=== PATIENT | male | born 1965 | race American Indian/Alaskan Native ===

== ENCOUNTER 2019-06-13 21:03 | Emergency (ER) | payer OTHER, SELFPAY ==
[2019-06-13 21:05] VITALS: PULSE 60; RESP 18; TEMP 37.1; O2SAT 99; BMI 33.2
[2019-06-13 21:30] VITALS: BP 135/81
--- NOTE | 2019-06-13 21:35 | ED.ARRPALP ---
HPI - Arrhythmia/Palpitations General Chief Complaint: Arrhythmia/Palpitations Stated Complaint: IRREGULAR HEART RATE Time Seen by Provider: 06/13/19 21:23 Source: patient Mode of arrival: ambulatory Limitations: no limitations History of Present Illness HPI narrative: Patient is a 53-year-old male with history of atrial fibrillation, who presents with heart palpitations. He states this started yesterday and has continued throughout the day today. He denies any excessive caffeine use fact he only drinks 1 cup of day. No alcohol use. 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 He has been drinking at least 2 L of water day. He denies any dizziness or lightheadedness. He states he feels a little short of breath right now but no cough no fever no shortness of breath with exertion. He states he was cardioverted about 6 years ago, and has not had any problems. MD complaint: palpitations Onset (ago): day(s) (2) Arrhythmia history: atrial fibrillation Related Data Allergies Allergy/AdvReac Type Severity Reaction Status Date / Time No Known Drug Allergies Allergy Verified 06/13/19 21:12 Review of Systems Review of Systems GENERAL: Denies chills, fatigue, malaise, fever, sweats, travel HEENT: Denies sinus pain, ear pain, sore throat, difficulty swallowing, neck pain RESPIRATORY: Denies dyspnea, cough, wheezing, hemoptysis, sputum. CARDIOVASCULAR: See HPI GASTROINTESTINAL: Denies nausea, vomiting, abdominal pain, diarrhea, constipation, melena. : Denies dysuria, frequency, incontinence, hematuria, urinary retention, flank pain. MUSCULOSKELETAL: Denies weakness, joint pain, or bony pain SKIN: No rash, no erythema, no pruritus NEUROLOGIC: Denies weakness, dizziness, headache, numbness, change in speech, confusion PSYCHIATRIC: No concerning psychosocial issues. 12 point review of systems is negative except for those stated above and HPI [facility] Medical History Atrial fibrillation (Acute) Social History Smoking Status: Never smoker Social History Smoking Status: Never smoker Exam Initial Vital Signs Initial Vital Signs: Vital Signs Temperature 98.7 F 06/13/19 21:05 Pulse Rate 60 06/13/19 21:05 Respiratory Rate 18 06/13/19 21:05 Pulse Oximetry 99 06/13/19 21:05 GENERAL: Well-appearing, well-nourished and in no acute distress. HEENT: Head atraumatic,EOMI, pupils reactive, face symmetric, moist mucous membranes CARDIOVASCULAR: Regular rate and rhythm without murmurs, rubs or gallops. RESPIRATORY: Breath sounds equal bilaterally, no wheezes rales or rhonchi. ABDOMEN: Soft, nontender. Normoactive bowel sounds all 4 quadrants. No guarding or rebound. EXTREMITIES: Normal range of motion, no clubbing or edema. Neurovascularly intact NEUROLOGICAL: Alert and oriented x4.Normal gait and speech. Cranial nerves II through XII grossly intact. SKIN: Warm, dry, no laceration, no petechiae, no rashes or lesions. Course Orders Ordered: ED Orders 06/13/19 21:12 EKG-12 Lead Stat 06/13/19 21:25 Complete Blood Count AUTO DIFF Stat Comprehensive Metabolic Panel Stat Lipase Stat Troponin & CK Cardiac Panel Stat 06/13/19 21:49 XR chest 1V Stat Discontinued Medications Sodium Chloride (Normal Saline 0.9%) 1,000 mls @ 1,000 mls/hr IV CONT FABIAN Last Admin: 06/13/19 21:53 Dose: 1,000 mls/hr Vital Signs - 8 hr 06/13/19 21:05 06/13/19 21:30 06/13/19 22:32 Temperature 98.7 F Pulse Rate 60 65 Respiratory Rate 18 17 Blood Pressure 123/69 Blood Pressure [Right Arm] 135/81 Pulse Oximetry 99 97 MDM - Arrhythmia/Palpitations Lab Data Attestation: I reviewed the patient's lab results. Result diagrams: 06/13/19 21:25 06/13/19 21:25 Lab Results 06/13/19 06/13/19 Range/Units 21:25 21:25 WBC 6.8 (4.5-11.0) X10^3/uL RBC 4.91 (4.5-5.9) X10^6/uL Hgb 14.6 (13.5-17.5) g/dL Hct 41.8 (41-53) % MCV 85.0 (80-100) fL MCH 29.8 (26-34) PG MCHC 35.0 (30-36) % RDW 12.9 (11.6-14.8) % Plt Count 230 (150-400) X10^3/uL Neut % (Auto) 52.4 (50-75) % Lymph % (Auto) 32.9 (25-40) % [place] % (Auto) 9.6 (3-14) % Eos % (Auto) 4.5 H (2-4) % Baso % (Auto) 0.6 (0-2) % Neut # (Auto) 3500 (3079-2841) /uL Lymph # (Auto) 2200 (0480-0379) /uL [place] # (Auto) 600 (0-900) /uL Eos # (Auto) 300 (0-450) /uL Baso # (Auto) 0 (0-100) /uL Sodium 139 (137-145) mmol/L Potassium 3.4 (3.4-5.1) mmol/L Chloride 106 (98-107) mmol/L Carbon Dioxide 26 (22-32) mmol/L BUN 15 (9-20) mg/dL Creatinine 0.80 (0.66-1.25) mg/dL Estimated GFR > 60.0 (>60) mL/min BUN/Creatinine Ratio 18.8 (6-22) Glucose 127 H (70-100) mg/dL Calcium 8.9 (8.4-10.2) mg/dL Total Bilirubin 0.7 (0.2-1.3) mg/dL AST 40 (17-59) IU/L ALT 24 (21-72) IU/L Alkaline Phosphatase 61 (38-126) U/L Total Creatine Kinase 429 H (55-170) U/L CK-MB (CK-2) 3.82 H (<2.37) ng/mL CK-MB (CK-2) Rel Index 0.9 L (1.5-5.0) % Troponin I < 0.012 (0.01-0.034) ng/mL Total Protein 7.4 (6.3-8.2) g/dL Albumin 4.1 (3.5-5.0) g/dL Globulin 3.3 (1.7-4.1) g/dL Albumin/Globulin Ratio 1.2 (1.0-2.8) Lipase 175 (23-300) U/L Imaging Data Chest x-ray: Attestation: I personally reviewed and interpreted this imaging study as follows: My impression: No acute cardio process ECG Data Attestation: I personally reviewed and interpreted this ECG as follows: Prior ECG tracings: available for review Interpretation: Normal sinus rhythm with PVCs heart rate 61 p.r. interval 210 T-wave inversion noted in lead 3 similar [place] [address] [place]ations. MDM Narrative Medical decision making narrative: Patient does have PVCs on the monitor likely causing his heart palpitation. We discussed increasing hydration avoiding caffeine. At this time no need for treatment recommended to follow up with his PCP. He overall feels better and feels ready and able to go home. Discharge Plan Departure Patient Disposition: Home Clinical Impression: Palpitations Discharge Date/Time: 06/13/19 22:34 Interventions: ED Discharge Assessment Last Done: 06/13/19 22:32 Instructions: Premature Ventricular Beats Activity Restrictions/Additional Instructions: *You have been diagnosed with PVCs *What to do: Your heart is skipping a beat which is a benign problem. At this time recommend decreasing caffeine and increasing water intake *Continue to take medications as directed *Follow up with your primary care provider in 2-3 days *Return to ER if you should have increasing palpitations dizziness lightheadedness chest pain or any new, worsening or concerning symptoms Referrals: Arlet Larios MD [Primary Care Provider] -
--- NOTE | 2019-06-13 21:38 | ED_ITS ---
HPI - Arrhythmia/Palpitations General Chief Complaint: Arrhythmia/Palpitations Stated Complaint: IRREGULAR HEART RATE Time Seen by Provider: 06/13/19 21:23 Source: patient Mode of arrival: ambulatory Limitations: no limitations History of Present Illness HPI narrative: Patient is a 53-year-old male with history of atrial fibrillation, who presents with heart palpitations. He states this started yesterday and has continued throughout the day today. He denies any excessive caffeine use fact he only drinks 1 cup of day. No alcohol use. 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 He has been drinking at least 2 L of water day. He denies any dizziness or lightheadedness. He states he feels a little short of breath right now but no cough no fever no shortness of breath with exertion. He states he was cardioverted about 6 years ago, and has not had any problems. MD complaint: palpitations Onset (ago): day(s) (2) Arrhythmia history: atrial fibrillation Related Data Allergies Allergy/AdvReac Type Severity Reaction Status Date / Time No Known Drug Allergies Allergy Verified 06/13/19 21:12 Review of Systems Review of Systems GENERAL: Denies chills, fatigue, malaise, fever, sweats, travel HEENT: Denies sinus pain, ear pain, sore throat, difficulty swallowing, neck pain RESPIRATORY: Denies dyspnea, cough, wheezing, hemoptysis, sputum. CARDIOVASCULAR: See HPI GASTROINTESTINAL: Denies nausea, vomiting, abdominal pain, diarrhea, constipation, melena. : Denies dysuria, frequency, incontinence, hematuria, urinary retention, flank pain. MUSCULOSKELETAL: Denies weakness, joint pain, or bony pain SKIN: No rash, no erythema, no pruritus NEUROLOGIC: Denies weakness, dizziness, headache, numbness, change in speech, confusion PSYCHIATRIC: No concerning psychosocial issues. 12 point review of systems is negative except for those stated above and HPI [facility] Medical History Atrial fibrillation (Acute) Social History Smoking Status: Never smoker Social History Smoking Status: Never smoker Exam Initial Vital Signs Initial Vital Signs: Vital Signs Temperature 98.7 F 06/13/19 21:05 Pulse Rate 60 06/13/19 21:05 Respiratory Rate 18 06/13/19 21:05 Pulse Oximetry 99 06/13/19 21:05 GENERAL: Well-appearing, well-nourished and in no acute distress. HEENT: Head atraumatic,EOMI, pupils reactive, face symmetric, moist mucous membranes CARDIOVASCULAR: Regular rate and rhythm without murmurs, rubs or gallops. RESPIRATORY: Breath sounds equal bilaterally, no wheezes rales or rhonchi. ABDOMEN: Soft, nontender. Normoactive bowel sounds all 4 quadrants. No g uarding or rebound. EXTREMITIES: Normal range of motion, no clubbing or edema. Neurovascularly inta ct NEUROLOGICAL: Alert and oriented x4.Normal gait and speech. Cranial nerves II through XII grossly intact. SKIN: Warm, dry, no laceration, no petechiae, no rashes or lesions. Course Orders Ordered: ED Orders 06/13/19 21:12 EKG-12 Lead Stat 06/13/19 21:25 Complete Blood Count AUTO DIFF Stat Comprehensive Metabolic Panel Stat Lipase Stat Troponin & CK Cardiac Panel Stat 06/13/19 21:49 XR chest 1V Stat Discontinued Medications Sodium Chloride (Normal Saline 0.9%) 1,000 mls @ 1,000 mls/hr IV CONT FABIAN Last Admin: 06/13/19 21:53 Dose: 1,000 mls/hr Vital Signs - 8 hr 06/13/19 21:05 06/13/19 21:30 06/13/19 22:32 Temperature 98.7 F Pulse Rate 60 65 Respiratory Rate 18 17 Blood Pressure 123/69 Blood Pressure [Right Arm] 135/81 Pulse Oximetry 99 97 MDM - Arrhythmia/Palpitations Lab Data Attestation: I reviewed the patient's lab results. Result diagrams: 06/13/19 21:25 06/13/19 21:25 Lab Results 06/13/19 06/13/19 Range/Units 21:25 21:25 WBC 6.8 (4.5-11.0) X10^3/uL RBC 4.91 (4.5-5.9) X10^6/uL Hgb 14.6 (13.5-17.5) g/dL Hct 41.8 (41-53) % MCV 85.0 (80-100) fL MCH 29.8 (26-34) PG MCHC 35.0 (30-36) % RDW 12.9 (11.6-14.8) % Plt Count 230 (150-400) X10^3/uL Neut % (Auto) 52.4 (50-75) % Lymph % (Auto) 32.9 (25-40) % [place] % (Auto) 9.6 (3-14) % Eos % (Auto) 4.5 H (2-4) % Baso % (Auto) 0.6 (0-2) % Neut # (Auto) 3500 (1591-8018) /uL Lymph # (Auto) 2200 (6304-4190) /uL [place] # (Auto) 600 (0-900) /uL Eos # (Auto) 300 (0-450) /uL Baso # (Auto) 0 (0-100) /uL Sodium 139 (137-145) mmol/L Potassium 3.4 (3.4-5.1) mmol/L Chloride 106 (98-107) mmol/L Carbon Dioxide 26 (22-32) mmol/L BUN 15 (9-20) mg/dL Creatinine 0.80 (0.66-1.25) mg/dL Estimated GFR > 60.0 (>60) mL/min BUN/Creatinine Ratio 18.8 (6-22) Glucose 127 H (70-100) mg/dL Calcium 8.9 (8.4-10.2) mg/dL Total Bilirubin 0.7 (0.2-1.3) mg/dL AST 40 (17-59) IU/L ALT 24 (21-72) IU/L Alkaline Phosphatase 61 (38-126) U/L Total Creatine Kinase 429 H (55-170) U/L CK-MB (CK-2) 3.82 H (<2.37) ng/mL CK-MB (CK-2) Rel Index 0.9 L (1.5-5.0) % Troponin I < 0.012 (0.01-0.034) ng/mL Total Protein 7.4 (6.3-8.2) g/dL Albumin 4.1 (3.5-5.0) g/dL Globulin 3.3 (1.7-4.1) g/dL Albumin/Globulin Ratio 1.2 (1.0-2.8) Lipase 175 (23-300) U/L Imaging Data Chest x-ray: Attestation: I personally reviewed and interpreted this imaging study as follows: My impression: No acute cardio process ECG Data Attestation: I personally reviewed and interpreted this ECG as follows: Prior ECG tracings: available for review Interpretation: Normal sinus rhythm with PVCs heart rate 61 p.r. interval 210 T- wave inversion noted in lead 3 similar [place] [address] [place]ations. MDM Narrative Medical decision making narrative: Patient does have PVCs on the monitor likely causing his heart palpitation. We discussed increasing hydration avoiding caffeine. At this time no need for treatment recommended to follow up with his PCP. He overall feels better and feels ready and able to go home. Discharge Plan Departure Patient Disposition: Home Clinical Impression: Palpitations Discharge Date/Time: 06/13/19 22:34 Interventions: ED Discharge Assessment Last Done: 06/13/19 22:32 Instructions: Premature Ventricular Beats Activity Restrictions/Additional Instructions: *You have been diagnosed with PVCs *What to do: Your heart is skipping a beat which is a benign problem. At this time recommend decreasing caffeine and increasing water intake *Continue to take medications as directed *Follow up with your primary care provider in 2-3 days *Return to ER if you should have increasing palpitations dizziness lighthe adedness chest pain or any new, worsening or concerning symptoms Referrals: Arlet Larios MD [Primary Care Provider] -
--- NOTE | 2019-06-13 21:49 | DI.RAD.S_ITS ---
PROCEDURE: XR CHEST 1V INDICATIONS: chest pain short of breath TECHNIQUE: One view of the chest was acquired. COMPARISON: None. FINDINGS: Surgical changes and devices: None. Lungs and pleura: Lungs are clear. No pleural effusions or pneumothorax. Mediastinum: Mediastinal contours appear normal. Heart size is normal. Bones and chest wall: No suspicious bony lesions. Overlying soft tissues appear unremarkable. IMPRESSION: No acute cardiopulmonary abnormality. Dictated by: Donnie Rivers M.D. on 06/13/2019 at 22:23 Approved by: Donnie Rivers M.D. on 06/13/2019 at 22:25
[2019-06-13] MEDS: SODIUM CHLORIDE 0.9% 1,000 ML 1000 ML IV (21:53)
[2019-06-13 21:56] LABS: Add Manual Diff / Slide Review NO; Basophils Absolute Auto 0 /uL (0-100); Basophils Percent Auto 0.6 % (0-2); Eosinophils Absolute Auto 300 /uL (0-450); Eosinophils Percent Auto 4.5 % (2-4); Hematocrit 41.8 % (41-53); Hemoglobin 14.6 g/dL (13.5-17.5); Lymphocytes Absolute Auto 2200 /uL (1100-4500); Lymphocytes Percent Auto 32.9 % (25-40); Mean Corpuscular Hemoglobin 29.8 PG (26-34); Monocytes Absolute Auto 600 /uL (0-900); Monocytes Percent Auto 9.6 % (3-14); Neutrophils Absolute Auto 3500 /uL (1500-7000); Neutrophils Percent Auto 52.4 % (50-75); Platelet Count 230 X10^3/uL (150-400); Red Blood Cell Count 4.91 X10^6/uL (4.5-5.9); Red Cell Distribution Width 12.9 % (11.6-14.8); White Blood Cell Count 6.8 X10^3/uL (4.5-11.0)
[2019-06-13 22:03] LABS: Alanine Aminotransferase 24 IU/L (21-72); Albumin 4.1 g/dL (3.5-5.0); Albumin Globulin Ratio 1.2 (1.0-2.8); Alkaline Phosphatase 61 U/L (38-126); Aspartate Aminotransferase 40 IU/L (17-59); BUN Creatinine Ratio 18.8 (6-22); Bilirubin Total 0.7 mg/dL (0.2-1.3); Blood Urea Nitrogen 15 mg/dL (9-20); Calcium 8.9 mg/dL (8.4-10.2); Carbon Dioxide 26 mmol/L (22-32); Chloride 106 mmol/L (98-107); Creatine Kinase 429 U/L (55-170); Estimated Glomerular Filt Rate > 60.0 mL/min (>60); Globulin 3.3 g/dL (1.7-4.1); Glucose 127 mg/dL (70-100); HEMOLYSIS 19 (0-50); Lipase 175 U/L (23-300); Potassium 3.4 mmol/L (3.4-5.1); Sodium 139 mmol/L (137-145); Total Protein 7.4 g/dL (6.3-8.2)
[2019-06-13 22:14] LABS: Troponin I < 0.012 ng/mL (0.01-0.034)
[2019-06-13 22:18] LABS: CKMB % Relative Index 0.9 % (1.5-5.0); Creatine Kinase MB 3.82 ng/mL (<2.37)
[2019-06-13 22:32] VITALS: BP 123/69; PULSE 65; RESP 17; O2SAT 97
--- NOTE | 2019-06-26 03:51 | PC.NURSE ---
late entry: Pt received 500ml of normal saline. completed at time of discharge on 06/13/19 at 2234
== END 2019-06-13 22:34 | disposition home or self-care (01) ==
PROVIDERS: Emergency Provider Emergency Medicine; PCP Family Medicine
DX: R00.2 Palpitations (principal)
CPT/HCPCS: 36591; 71045; 80053; 82550; 82553; 83690; 84484; 85025; 93005; 93010; 93041; 96360; 99283; 99284; 99285

== ENCOUNTER 2019-08-04 18:44 | Emergency (ER) | payer OTHER, SELFPAY ==
[2019-08-04 18:51] VITALS: BP 135/94; PULSE 69; RESP 16; TEMP 36.9; O2SAT 98
--- NOTE | 2019-08-04 18:53 | ED_ITS ---
HPI - Wound/Laceration General Chief Complaint: Wound/Laceration Stated Complaint: laceration to right thumb from table saw Time Seen by Provider: 08/04/19 18:50 Source: patient Mode of arrival: Ambulatory Limitations: no limitations History of Present Illness HPI narrative: 53-year-old male here for evaluation of an injury to his right thumb. Patient states that he was using a table saw all at home when he touched the saw with his thumb. Had bleeding immediately afterwards. Does not know when his last tetanus shot was. Wrapped with a bandage came to the emergency department for evaluation for Related Data Previous Rx's Medication Instructions Recorded cephalexin [Keflex] 500 mg PO BID 7 Days #14 cap 08/04/19 Allergies Allergy/AdvReac Type Severity Reaction Status Date / Time No Known Drug Allergies Allergy Verified 06/13/19 21:12 Review of Systems Constitutional Constitutional: Denies headache(s) ENT Ears, Nose, Mouth, and Throat: Denies headache(s) Musculoskeletal Musculoskeletal: Denies myalgias, Denies arthralgias and Denies tingling Integumentary/Breasts Comments: Cut to the tip of the right thumb Neurologic Neurologic: Denies headache(s), Denies tingling and Denies paresthesias Hematologic/Lymphatic Hematologic/Lymphatic: Denies easy bleeding and Denies easy bruising [facility] Medical History Atrial fibrillation (Acute) Social History Smoking Status: Never smoker Exam Initial Vital Signs Initial Vital Signs: Vital Signs Temperature 98.4 F 08/04/19 18:51 Pulse Rate 69 08/04/19 18:51 Respiratory Rate 16 08/04/19 18:51 Blood Pressure 135/94 H 08/04/19 18:51 Pulse Oximetry 98 08/04/19 18:51 Const General: cooperative, comfortable and well developed Orientation: alert, awake and oriented x3 Cardio Pulses: radial pulses present on the right Skin Other: Patient with a 0.5 cm laceration volar aspect of the right thumb and a 2nd 2 cm laceration to the tip of the right thumb also on the volar aspect. There is no nail involvement. Neuro Sensory Exam: no sensory deficits noted Extrem Other: Full range of motion of the MCP and IP joint of the right thumb Psych Appearance: grossly normal and well kempt Procedures Laceration Repair Laceration 1: Site: other (Right thumb) Side (If applicable): right Size (cm): 2 Description: irregular Depth: simple, single layer Local Anesthetic: lidocaine 1% Amount of anesthesia used (mL): 3 Pre-repair: wound explored and irrigated extensively Skin layer closed with: nylon Size (cm): 4-0 Number of sutures: 5 Technique: simple, interrupted Laceration 2: Site: other (Right thumb) Side (If applicable): right Size (cm): 0.5 Description: linear Depth: simple, single layer Local Anesthetic: lidocaine 1% Amount of anesthesia used (mL): 1 Pre-repair: wound explored and irrigated extensively Skin layer closed with: nylon Size (cm): 4-0 Number of sutures: 2 Technique: simple, interrupted Course Orders Ordered: ED Orders 08/04/19 18:52 XR finger RT min 2V Stat Discontinued Medications Cephalexin HCl (Keflex) 500 mg PO NOW ONE Stop: 08/04/19 20:21 Last Admin: 08/04/19 20:53 Dose: 500 mg Documented by: MARSHAL Diphtheria/Tetanus/Acell Pertussis (Adacel) 0.5 ml IM .ONCE ONE Stop: 08/04/19 18:53 Last Admin: 08/04/19 19:20 Dose: 0.5 ml Documented by: MARSHAL Lidocaine HCl (Xylocaine 1% (Pf)) 4 ml INJ NOW ONE Stop: 08/04/19 18:53 Last Admin: 08/04/19 19:19 Dose: 4 ml Documented by: MARSHAL Lorazepam (Ativan) 2 mg IM NOW ONE Stop: 08/04/19 20:00 Vital Signs Vital signs: Vital Signs - 8 hr 08/04/19 18:51 Temperature 98.4 F Pulse Rate 69 Respiratory Rate 16 Blood Pressure 135/94 H Pulse Oximetry 98 MDM - Wound/Laceration Imaging Data X-ray finger: Radiologist's impression: [address] [id number] XRay Report Signed Patient: Jacques Cervantes CMR#: [id number] : 1965Acct:[id number] Age/Sex: 53 / MDate of Service: 08/04/19 Loc: ED Accession Number: [id number] Procedure: XR finger RT min 2V Ordering Provider: Isidoro López D.O. PROCEDURE: XR FINGER RT MIN 2V INDICATIONS: saw vs thumb TECHNIQUE: AP hand, 2 views of the 3 finger(s) acquired. COMPARISON: None. FINDINGS: Bones: No fractures or dislocations. No suspicious bony lesions. 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 Soft tissues: No suspicious soft tissue calcifications. There is a tissue irregularity in the tip of the first finger. IMPRESSION: No acute bony injuries. Dictated by: Luzma Kaye M.D. on 08/04/2019 at 19:23 Approved by: Luzma Kaye M.D. on 08/04/2019 at 19:24 [facility] Narrative Medical decision making narrative: Patient has relatively superficial injuries to the right thumb. There is no bony involvement. His tetanus was updated. The wounds were closed as described above. No deep structure involvement. Full range of motion of joints. Patient was given return precautions and follow-up instructions. He expressed understanding and agreement with plan. Discharge Plan Departure Patient Disposition: Home Clinical Impression: Laceration Discharge Date/Time: 08/04/19 21:00 Instructions: DI for Laceration Repair Activity Restrictions/Additional Instructions: You can wash your hand like normal. You can use soap and water like normal. Your tetanus shot was updated today. You were given your 1st dose of antibiotics here in the ER fill your prescription and start taking them as directed. Return to the emergency department for any new or worsening symptoms Prescriptions: New cephalexin [Keflex] 500 mg capsule 500 mg PO BID 7 Days Qty: 14 RF: 0 Referrals: Arlet Larios MD [Primary Care Provider] -
[2019-08-04] MEDS: LIDOCAINE 1% (PF) 4 ML INJ (19:19)
[2019-08-04] MEDS: TET,DIPH,PERTUSS(ACELL),VAC/PF 0.5 ML SYRINGE IM (19:20)
[2019-08-04] MEDS: cephALEXin 250 MG CAPSULE 500 MG PO (20:53)
== END 2019-08-04 21:00 | disposition home or self-care (01) ==
PROVIDERS: Emergency Provider Emergency Medicine; PCP Family Medicine
DX: S61.011A Laceration without foreign body of right thumb without damage to nail, initial encounter (principal); W31.2XXA Contact with powered woodworking and forming machines, initial encounter
CPT/HCPCS: 12001; 73140; 90471; 99283; 90715

== ENCOUNTER → 2020-05-19 17:36 | Outpatient (CLI) | payer OTHER, SELFPAY ==
--- NOTE | 2020-05-19 | DI.MRI.S_ITS ---
PROCEDURE: MR ANKLE LT WO CON INDICATIONS: Left achilles pain and swelling TECHNIQUE: Noncontrast sagittal T1 spin echo and T2 fast spin echo with fat saturation, axial proton density fast spin echo and T2 fast spin echo with fat saturation, coronal T1 spin echo and T2 fast spin echo with fat saturation through the ankle/hindfoot. COMPARISON: None. FINDINGS: Image quality: Excellent. Bones and joints: No bone marrow contusions or fractures. No hindfoot coalitions. No osteochondral injuries of the talar dome. No pathologic joint effusions. There is tibiotalar joint degeneration with subchondral marrow edema along the medial and lateral joint. Medial structures: Posterior tibialis intact. Flexor digitorum longus intact. There is mild tenosynovitis. Flexor hallucis longus tendon intact. The posterior tibial neurovascular bundle appears normal within the tarsal tunnel, without extrinsic mass effect. Deltoid ligament complex appears intact. The spring ligament appears intact. Lateral structures: Anterior talofibular ligament not well seen and probably reflects chronic sprain given the absence of adjacent soft tissue edema. Calcaneofibular ligament intact. Posterior talofibular ligament intact. Anterior and posterior tibiofibular ligaments appear intact, as is the intermalleolar ligament. Tibiofibular syndesmosis is normal in width at 2 mm or less. Peroneus longus and brevis tendons demonstrate normal location and morphology. Bony peroneal tubercle and retrotrochlear prominence are normal in size. Sinus tarsi demonstrates normal fatty signal, without edema, fibrosis, or cyst formation. Anterior structures: Tibialis anterior intact. Extensor hallucis longus intact. Extensor digitorum longus tendon intact. Dorsal talonavicular ligament appears intact. Posterior and plantar structures: Achilles tendon is markedly thickened with T2 hyperintensity in keeping with severe tendinopathy/partial rupture. No complete rupture identified. This finding technically age indeterminate and could be subacute or chronic. Mild medial band plantar fasciitis, technically age indeterminate. No abductor digiti quinti muscle atrophy to suggest Hernandez neuropathy. IMPRESSION: Severe Achilles tendinopathy and/or partial rupture. No complete disruption identified. Tibiotalar joint degeneration Chronic sprain of the anterior talofibular ligament Mild flexor digitorum tenosynovitis Dictated by: Son Dunn M.D. on 05/20/2020 at 9:33 Approved by: Son Dunn M.D. on 05/20/2020 at 9:48
--- NOTE | 2020-05-19 | DI.RAD.S_ITS ---
PROCEDURE: XR FOOT LT MIN 3V INDICATIONS: Other specified disorders of synovium and tendon, TECHNIQUE: Three views of the foot were acquired. COMPARISON: None. FINDINGS: Bones: No fractures or dislocations. Mild degenerative spurring at the 1st TMT joint. Moderate spurring anterior and posteriorly at the tibiotalar joint and dorsally along the midfoot. No suspicious bony lesions. Soft tissues: No tibiotalar joint effusion. Achilles tendon appears normal. IMPRESSION: Mild hindfoot and midfoot degeneration. This is most pronounced at the tibiotalar joint. Dictated by: Linda Joyce M.D. on 05/20/2020 at 9:17 Approved by: Linda Joyce M.D. on 05/20/2020 at 9:18
== END ==
PROVIDERS: PCP Family Medicine; Referring Provider Family Medicine; Visit Provider Family Medicine
DX: M79.672 Pain in left foot (principal); M19.072 Primary osteoarthritis, left ankle and foot; M67.874 Other specified disorders of tendon, left ankle and foot; S93.492A Sprain of other ligament of left ankle, initial encounter; M65.872 Other synovitis and tenosynovitis, left ankle and foot
CPT/HCPCS: 73630; 73721

== ENCOUNTER → 2021-04-05 09:43 | Outpatient (CLI) | payer OTHER, SELFPAY ==
[2021-04-05 11:09] LABS: COVID19 -Nasal RAPID Negative (Negative)
== END ==
PROVIDERS: PCP Family Medicine; Visit Provider Surgery
DX: Z20.822 Contact with and (suspected) exposure to COVID-19 (principal)
CPT/HCPCS: 87635; C9803

== ENCOUNTER 2021-04-06 14:03 | Day surgery (SDC) | payer OTHER, SELFPAY ==
[2021-04-06] VITALS (7 sets, daily range): BP systolic 96–115; BP diastolic 61–77; PULSE 54–65; RESP 12–16; TEMP 35.8–36.9; O2SAT 95–98; BMI 31.7
--- NOTE | 2021-04-06 14:50 | PM.HP.1 ---
History of Present Illness History of Present Illness Date Patient Seen: 04/06/21 Time Patient Seen: 14:50 Chief complaint: SDC Narrative: This is a 55-year-old man who is here for his 1st screening colonoscopy. He does have a history of anemia. He denies any known history of melena, hematochezia, unexplained abdominal pain, unexplained weight loss, or family history of colon cancer or colon polyps. ROS: Thirteen system review is otherwise negative other than as mentioned below and in HPI. PE GENERAL: Well groomed and cooperative. Appears stated age. Answers questions promptly and appropriately. Vital signs noted. HENT: Normocephalic, atraumatic. Hearing intact. EYES: Conjunctiva pink, sclera white, no periorbital swelling. CARDIOVASCULAR: Regular rate. No pedal edema. RESPIRATORY: Non-tachypneic, breathing comfortably on room air. GASTROINTESTINAL: Abdomen soft and non-distended GENITALURINARY: No flank tenderness. MUSCULOSKELETAL: Equal tone and mass bilaterally. SKIN: Warm, dry, soft, appropriate color for ethnicity. No other lesions, rashes, or wounds. NEURO: Alert and Oriented X 3. No gross sensory deficits, or cognitive issues. PSYCH: Appropriate affect and mood. Patient History Medical History (Updated 04/06/21 @ 14:51 by Chichi Wood MD) Atrial fibrillation Family & Social History Tobacco & Substance use: Smoking Status Never smoker alcohol intake frequency other Substance Use Type does not use Meds Home Medications and Allergies Home Medications Medication Instructions Recorded Confirmed Type diltiazem HCl 120 mg PO DAILY 04/06/21 04/06/21 History ferrous sulfate [FeroSul] 325 mg PO Q OTHER DAY 04/06/21 04/06/21 History Allergies Allergy/AdvReac Type Severity Reaction Status Date / Time No Known Drug Allergies Allergy Verified 04/06/21 14:34 Assessment & Plan Assessment and plan (1) At average risk for colon cancer: Status: Acute (2) Anemia: Status: Acute Assessment & Plan narrative: Risks and benefits of screening colonoscopy and possible polypectomy were discussed with the patient including risk of bleeding, perforation, need for additional procedures, risks of anesthesia. The patient desires to proceed with the colonoscopy procedure. COVID-19 COVID-19 status: Negative Result date/Date tested (Pos, Neg/Pending): 04/05/21 Time Spent With Patient Time with patient: 15-24 minutes Quality VTE Deep Vein Thrombosis/Pulmonary Embolism Present on Admission: No
--- NOTE | 2021-04-06 14:55 | P.OP.ENDO_ITS ---
Operative Date/Time/Diagnoses Date of procedure: 04/06/21 Time of procedure: 14:55 Pre-op diagnosis: Anemia, average risk colon cancer Post-op diagnosis: other (No polyps. Mild diverticulosis.) Procedure & Clinicians Study performed: Colonoscopy Procedural sedation performed by the endoscopist Same procedure as scheduled: Yes Indications: Average risk for colon cancer, due for screening colonoscopy, anemia Surgeon: Chichi Wood Procedure Notes SCOAP/Timeout: Performed Procedure in detail: The patient was brought to the room and placed in left lateral decubitus position with all bony prominences padded. A time-out was performed and then the patient was given procedural sedation starting with 4 mg of Versed and 100 mcg of fentanyl. Vitals were monitored throughout the procedure and remained stable. Once adequately sedated, the procedure was begun. A rectal exam was performed revealing no abnormalities. The colonoscope was then introduced to the rectum and advanced to the cecum in the usual fashion. The cecum was identified by the appendiceal orifice, the mucosal tri- fold, and the ileocecal valve. The scope was then retracted while rotating side to side and examining each mucosal fold. Diverticula were seen in the descending and sigmoid colon, without evidence of diverticulitis. At the conclusion of the procedure retroflexion was performed and small grade 1-2 internal hemorrhoids without stigmata of bleeding were seen. The scope was then withdrawn from the rectum the procedure was concluded. The patient tolerated the procedure well and was transferred to the PACU in stable condition. Scope withdrawal time: 10 Findings: diverticulosis Specimen(s): none sent Complications: none Impression: Diverticulosis Post-procedure Recommendations: Colonscopy in 10 years and High fiber diet Follow up: as needed Disposition: PACU
[2021-04-06] MEDS: SODIUM CHLORIDE 0.9% 1,000 ML 200 ML IV (15:00)
[2021-04-06] MEDS: fentaNYL 250 MCG/5 ML INJ IV (15:08)
[2021-04-06] MEDS: MIDAZOLAM 5 MG/5 ML VIAL IV (15:08)
== END 2021-04-06 16:15 | disposition home or self-care (01) ==
PROVIDERS: PCP Physician Assistant; Referring Provider Surgery; Visit Provider Surgery
PROC: 0DJD8ZZ Inspection of Lower Intestinal Tract, Via Natural or Artificial Opening Endoscopic (ICD-10-PCS; CPT 45378; principal; 2021-04-06 15:15)
DX: Z12.11 Encounter for screening for malignant neoplasm of colon (principal); D64.9 Anemia, unspecified; K57.30 Diverticulosis of large intestine without perforation or abscess without bleeding; K64.0 First degree hemorrhoids
CPT/HCPCS: 45378; J2250; J3010

== ENCOUNTER 2022-12-25 18:10 | Emergency (ER) | payer OTHER, SELFPAY ==
--- NOTE | 2022-12-25 18:22 | DI.RAD.S_ITS ---
PROCEDURE: XR CHEST 1V INDICATIONS: chest pain TECHNIQUE: One view of the chest was acquired. COMPARISON: [facility], CR, XR CHEST 1V, 06/13/2019, 21:54. FINDINGS: Surgical changes and devices: None. Lungs and pleura: Lungs are clear. No pleural effusions or pneumothorax. Mediastinum: Mediastinal contours appear normal. Heart size is normal. Bones and chest wall: No suspicious bony lesions. Overlying soft tissues appear unremarkable. IMPRESSION: No acute cardiopulmonary findings Approved by: Wellington Henley M.D. on 12/25/2022 at 18:01
[2022-12-25 18:24] VITALS: BP 148/76; PULSE 59; RESP 16; TEMP 37; O2SAT 99; BMI 35.2
[2022-12-25 18:29] LABS: Add Manual Diff / Slide Review NO; Basophils Absolute Auto 0 /uL (0-100); Basophils Percent Auto 0.6 % (0-2); Eosinophils Absolute Auto 200 /uL (0-450); Eosinophils Percent Auto 3.5 % (2-4); Hematocrit 42.8 % (41-53); Hemoglobin 14.7 g/dL (13.5-17.5); Lymphocytes Absolute Auto 2500 /uL (1100-4500); Mean Corpuscular HGB Conc 34.4 % (30-36); Mean Corpuscular Hemoglobin 29.3 PG (26-34); Mean Corpuscular Volume 85.3 fL (80-100); Monocytes Absolute Auto 600 /uL (0-900); Monocytes Percent Auto 9.7 % (3-14); Neutrophils Absolute Auto 2500 /uL (1500-7000); Neutrophils Percent Auto 43.2 % (50-75); Platelet Count 226 X10^3/uL (150-400); Red Blood Cell Count 5.02 X10^6/uL (4.5-5.9); Red Cell Distribution Width 13.5 % (11.6-14.8); White Blood Cell Count 5.8 X10^3/uL (4.5-11.0)
[2022-12-25 18:35] LABS: Prothrombin Time 11.4 SECONDS (10.1-12.7)
[2022-12-25 18:38] LABS: PTT Partial Thromboplastin Tim 31 SECONDS (26-36)
[2022-12-25 18:40] LABS: Alanine Aminotransferase 36 IU/L (<50); Albumin 4.3 g/dL (3.5-5.0); Albumin Globulin Ratio 1.2 (1.0-2.8); Alkaline Phosphatase 53 U/L (38-126); Aspartate Aminotransferase 32 IU/L (17-59); BUN Creatinine Ratio 17.2 (6-22); Bilirubin Total 0.5 mg/dL (0.2-1.3); Blood Urea Nitrogen 16 mg/dL (9-20); Calcium 8.6 mg/dL (8.4-10.2); Carbon Dioxide 24 mmol/L (22-32); Chloride 105 mmol/L (98-107); Creatine Kinase 221 U/L (55-170); Estimated Glomerular Filt Rate > 60 mL/min (>60); Globulin 3.5 g/dL (1.7-4.1); Glucose 134 mg/dL (70-100); HEMOLYSIS < 15 (0-50); Lipase 198 U/L (23-300); Potassium 3.6 mmol/L (3.4-5.1); Sodium 140 mmol/L (137-145); Total Protein 7.8 g/dL (6.3-8.2)
[2022-12-25 18:51] LABS: Troponin I < 0.012 ng/mL (0.01-0.034)
[2022-12-25 18:55] LABS: CKMB % Relative Index 0.9 % (1.5-5.0); Creatine Kinase MB 1.92 ng/mL (<2.37)
--- NOTE | 2022-12-25 19:55 | ED_ITS ---
HPI - Arrhythmia/Palpitations General Chief Complaint: Arrhythmia/Palpitations Stated Complaint: Irregular heartrate, lightheaded since yesterday Time Seen by Provider: 12/25/22 18:30 Source: patient Mode of arrival: Family Vehicle History of Present Illness HPI narrative: 57-year-old male nonsmoker with history of atrial fibrillation presents with a chief complaint of rapid heart rate and palpitations, yesterday noting that his smart watch suggested rate of 150 when he was exerting himself in a blackberry patch. He was largely asymptomatic otherwise and specifically denies dizziness, weakness or lightheadedness, no chest pain, shortness of breath nor nausea or vomiting. He states his episode lasted an hour at most. He denies any change in his medications or missed doses. He denies any dietary change and has not recently been ill, he denies diarrhea, fever or other. He states he had a very brief episode today of palpitations but no high heart rate. He is had no chest pain at any point, no exertional symptoms and no exercise fatigue. Related Data Home Medications Medication Instructions Recorded Confirmed diltiazem HCl 120 mg 120 mg PO DAILY 04/06/21 04/06/21 capsule,extended release 24 hr ferrous sulfate 325 mg (65 mg 325 mg PO Q OTHER DAY 04/06/21 04/06/21 iron) tablet (FeroSul) Allergies Allergy/AdvReac Type Severity Reaction Status Date / Time No Known Drug Allergies Allergy Verified 04/06/21 14:34 Review of Systems Review of Systems Narrative: GENERAL: Denies chills, fatigue, malaise, fever, sweats. HEENT: Denies sinus pain, ear pain, sore throat, difficulty swallowing, dizziness. RESPIRATORY: Denies dyspnea, cough, wheezing, hemoptysis, sputum. CARDIOVASCULAR: See HPI GASTROINTESTINAL: Denies nausea, vomiting, abdominal pain, diarrhea, constipation, melena. : Denies dysuria, frequency, incontinence, hematuria, urinary retention. MUSCULOSKELETAL: denies weakness, joint pain, or bony pain SKIN: Denies rash, skin lesions, or other NEUROLOGIC: Denies weakness, headache, numbness, change in speech, confusion, seizures, incoordination. PSYCHIATRIC: No concerning psychosocial issues. 12 point review of systems is negative except for those stated above Patient History Medical History (Updated 12/25/22 @ 20:25 by Florian Banks DO) Atrial fibrillation Social History household members: spouse Smoking Status: Never smoker alcohol intake: former Smoking Status: Never smoker alcohol intake frequency: other Substance Use Type: does not use Exam Narrative Exam Narrative: GENERAL: [57] year old patient appears stated age. Well-developed patient, in no obvious distress, resting comfortably HEAD: Atraumatic. Normocephalic. EYES: Pupils equal round and reactive. Extraocular motions intact. No scleral icterus. No injection or drainage. ENT: Nose without bleeding, purulent drainage. Throat without erythema, tonsillar hypertrophy or exudate. Airway patent. NECK: Trachea midline. Non tender CARDIOVASCULAR: Regular rate and rhythm without murmurs, gallops, or rubs. RESPIRATORY: Clear to auscultation. Breath sounds equal bilaterally. No wheezes, rales, or rhonchi. GASTROINTESTINAL: Abdomen soft, non-tender, nondistended. EXTREMITIES: No edema or joint tenderness. BACK: Nontender without deformity or crepitance. No flank tenderness. NEURO: AOx3. SKIN: No rash or erythema of visible areas Initial Vital Signs Initial Vital Signs: Vital Signs Temperature 98.6 F 12/25/22 18:24 Pulse Rate 59 L 12/25/22 18:24 Respiratory Rate 16 12/25/22 18:24 Blood Pressure 148/76 H 12/25/22 18:24 Pulse Oximetry 99 12/25/22 18:24 Oxygen Delivery Method 12/25/22 18:24 Course Orders Ordered: ED Orders 12/25/22 20:22 COVID19 -Nasal RAPID/Pre-Proc Stat Vital Signs Vital signs: Vital Signs - 8 hr 12/25/22 20:33 Pulse Rate 74 Respiratory Rate 14 Blood Pressure 121/85 Pulse Oximetry 97 Oxygen Delivery Method Room Air MDM - Arrhythmia/Palpitations Lab Data 12/25/22 18:21 12/25/22 18:21 Labs: Lab Results 12/25/22 12/25/22 12/25/22 Range/Units 18:21 18:21 18:21 WBC 5.8 (4.5-11.0) X10^3/uL RBC 5.02 (4.5-5.9) X10^6/uL Hgb 14.7 (13.5-17.5) g/dL Hct 42.8 (41-53) % MCV 85.3 (80-100) fL MCH 29.3 (26-34) PG MCHC 34.4 (30-36) % RDW 13.5 (11.6-14.8) % Plt Count 226 (150-400) X10^3/uL Neut % (Auto) 43.2 L (50-75) % Lymph % (Auto) 43.0 H (25-40) % Schuyler % (Auto) 9.7 (3-14) % Eos % (Auto) 3.5 (2-4) % Baso % (Auto) 0.6 (0-2) % Neut # (Auto) 2500 (1528-4543) /uL Lymph # (Auto) 2500 (7610-7001) /uL Schuyler # (Auto) 600 (0-900) /uL Eos # (Auto) 200 (0-450) /uL Baso # (Auto) 0 (0-100) /uL PT 11.4 (10.1-12.7) SECONDS INR 1.0 (0.9-1.3) APTT 31 (26-36) SECONDS Sodium 140 (137-145) mmol/L Potassium 3.6 (3.4-5.1) mmol/L Chloride 105 (98-107) mmol/L Carbon Dioxide 24 (22-32) mmol/L BUN 16 (9-20) mg/dL Creatinine 0.93 (0.66-1.25) mg/dL Estimated GFR > 60 (>60) mL/min BUN/Creatinine Ratio 17.2 (6-22) Glucose 134 H (70-100) mg/dL Calcium 8.6 (8.4-10.2) mg/dL Magnesium 2.0 (1.6-2.3) mg/dL Total Bilirubin 0.5 (0.2-1.3) mg/dL AST 32 (17-59) IU/L ALT 36 (<50) IU/L Alkaline Phosphatase 53 (38-126) U/L Total Creatine Kinase 221 H (55-170) U/L CK-MB (CK-2) 1.92 (<2.37) ng/mL CK-MB (CK-2) Rel Index 0.9 L (1.5-5.0) % Troponin I < 0.012 (0.01-0.034) ng/mL Total Protein 7.8 (6.3-8.2) g/dL Albumin 4.3 (3.5-5.0) g/dL Globulin 3.5 (1.7-4.1) g/dL Albumin/Globulin Ratio 1.2 (1.0-2.8) Lipase 198 (23-300) U/L SARS-CoV-2 (PCR) (Negative) 12/25/22 Range/Units 20:22 WBC (4.5-11.0) X10^3/uL RBC (4.5-5.9) X10^6/uL Hgb (13.5-17.5) g/dL Hct (41-53) % MCV (80-100) fL MCH (26-34) PG MCHC (30-36) % RDW (11.6-14.8) % Plt Count (150-400) X10^3/uL Neut % (Auto) (50-75) % Lymph % (Auto) (25-40) % Schuyler % (Auto) (3-14) % Eos % (Auto) (2-4) % Baso % (Auto) (0-2) % Neut # (Auto) (3407-1019) /uL Lymph # (Auto) (9788-4540) /uL Schuyler # (Auto) (0-900) /uL Eos # (Auto) (0-450) /uL Baso # (Auto) (0-100) /uL PT (10.1-12.7) SECONDS INR (0.9-1.3) APTT (26-36) SECONDS Sodium (137-145) mmol/L Potassium (3.4-5.1) mmol/L Chloride (98-107) mmol/L Carbon Dioxide (22-32) mmol/L BUN (9-20) mg/dL Creatinine (0.66-1.25) mg/dL Estimated GFR (>60) mL/min BUN/Creatinine Ratio (6-22) Glucose (70-100) mg/dL Calcium (8.4-10.2) mg/dL Magnesium (1.6-2.3) mg/dL Total Bilirubin (0.2-1.3) mg/dL AST (17-59) IU/L ALT (<50) IU/L Alkaline Phosphatase (38-126) U/L Total Creatine Kinase (55-170) U/L CK-MB (CK-2) (<2.37) ng/mL CK-MB (CK-2) Rel Index (1.5-5.0) % Troponin I (0.01-0.034) ng/mL Total Protein (6.3-8.2) g/dL Albumin (3.5-5.0) g/dL Globulin (1.7-4.1) g/dL Albumin/Globulin Ratio (1.0-2.8) Lipase (23-300) U/L SARS-CoV-2 (PCR) Negative (Negative) MDM Narrative Medical decision making narrative: CC: 57-year-old male with history of AFib presents with an episode of high heart rate in the 150s and palpitations yesterday, asymptomatic today Complicating co-morbidities: AFib Data collected from: Patient Medical records reviewed: Prior notes reviewed in our EMR Differential considered, but not limited to: AFib, SVT versus other Exam documented above, pertinent findings include: Heart rate regular, no nlabored breathing, soft abdomen, perfusing well and resting comfortably Lab Test results independently reviewed as above. Pertinent findings: No leukocytosis or left shift, H&H stable, electrolytes and kidney function normal, troponin negative Independently reviewed EKG as above Imaging studies independently reviewed: CXR without acute process Discussion: 57-year-old male with history of AFib had an episode racing heart rate and associated palpitations yesterday in the absence of other symptoms. He has been at baseline otherwise though he did have some mild palpitations today this was in the absence of any other symptoms such as chest pain, shortness of breath, high heart rate, dizziness, weakness or lightheadedness. He denies any medical noncompliance or dietary change. He denies any recent exertional symptoms or exercise intolerance. He is otherwise well and free of complaint. Disposition: see below, along with detailed discharge instructions that have been reviewed with patient as well as indications for ED re-evaluation and additional outpatient follow up Discharge Plan Departure Patient Disposition: Home Clinical Impression: Heart palpitations Activity Restrictions/Additional Instructions: *You have been diagnosed with [palpitations resolved, as we discussed your history and physical exam, electrolytes and EKG are very reassuring.] *What to do: *Please continue to take your regular medications as directed. *Please follow up with your primary care provider in 2-3 days, call for an appointment. Let them know you were seen in the Emergency Department and that we ask that you be seen in follow up. We will electronically transmit a record of today's note if your PCP is in our system *Return to Emergency Department if you should have any new, worsening or concerning symptoms, such as [fever greater than 101 F, shaking chills, worsening pain, persistent vomiting or other bothersome symptoms] Prescriptions: No Action diltiazem HCl 120 mg Capsule,Extended Release 24hr 120 mg PO DAILY ferrous sulfate [FeroSul] 325 mg (65 mg iron) Tablet 325 mg PO Q OTHER DAY Referrals: Kym Valencia PA-C [Primary Care Provider] - Stand Alone Forms: Patient Portal/API
--- NOTE | 2022-12-25 20:31 | PC.NURSE ---
iv placed by another nurse
--- NOTE | 2022-12-25 20:32 | PC.NURSE ---
Patient assessed by the doctor.
[2022-12-25 20:33] VITALS: BP 121/85; PULSE 74; RESP 14; O2SAT 97
[2022-12-25 21:26] LABS: COVID19 -Nasal RAPID Negative (Negative)
== END 2022-12-25 20:34 | disposition home or self-care (01) ==
PROVIDERS: Emergency Provider Emergency Medicine; PCP Physician Assistant
DX: R00.2 Palpitations (principal); Z20.822 Contact with and (suspected) exposure to COVID-19
CPT/HCPCS: 71045; 80053; 82550; 82553; 83690; 83735; 84484; 85025; 85610; 85730; 87635; 93005; 99283; 99284; C9803

== ENCOUNTER 2023-02-10 07:56 | Emergency (ER) | payer OTHER, SELFPAY ==
[2023-02-10] VITALS (16 sets, daily range): BP systolic 110–147; BP diastolic 60–88; PULSE 65–84; RESP 11–20; TEMP 36.2–36.6; O2SAT 95–100; BMI 33.6
--- NOTE | 2023-02-10 08:10 | ED.ARRPALP ---
HPI - Arrhythmia/Palpitations General Chief Complaint: Arrhythmia/Palpitations Stated Complaint: afib Time Seen by Provider: 02/10/23 07:59 Source: patient Mode of arrival: Family Vehicle History of Present Illness HPI narrative: Patient is a 57-year-old male. Does have history of atrial fibrillation. Is on diltiazem. 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 Was recently here in the emergency department for palpitations. Has followed up with his hardening machine operator helper since then. Holter monitor has been scheduled but he is yet to start this. He states he went to bed last evening feeling fine. He is taking his diltiazem as directed. Woke up this morning without chest pain nor shortness of breath but is having palpitations. No lightheadedness. He states it feels like his AFib. Has not tried anything for symptoms prior to arrival. Related Data Home Medications Medication Instructions Recorded Confirmed diltiazem HCl 120 mg 120 mg PO DAILY 04/06/21 04/06/21 capsule,extended release 24 hr ferrous sulfate 325 mg (65 mg 325 mg PO Q OTHER DAY 04/06/21 04/06/21 iron) tablet (FeroSul) Previous Rx's Medication Instructions Recorded rivaroxaban 20 mg tablet (Xarelto) 20 mg PO QPM #21 tabs 02/10/23 Allergies Allergy/AdvReac Type Severity Reaction Status Date / Time No Known Drug Allergies Allergy Verified 04/06/21 14:34 Review of Systems Constitutional Constitutional: Reports system reviewed and no additional complaints, except as documented Cardiovascular Cardiovascular: Reports system reviewed and no additional complaints, except as documented Respiratory Respiratory: Reports system reviewed and no additional complaints, except as documented Gastrointestinal Gastrointestinal: Reports system reviewed and no additional complaints, except as documented Integumentary/Breasts Skin/Breast: Reports system reviewed and no additional complaints, except as documented Hematologic/Lymphatic On Anticoagulants: No Patient History Medical History (Updated 02/10/23 @ 09:17 by Isidoro López DO) Atrial fibrillation Social History household members: spouse Smoking Status: Never smoker alcohol intake: former Smoking Status: Never smoker alcohol intake frequency: other Substance Use Type: does not use Exam Initial Vital Signs Initial Vital Signs: Vital Signs Temperature 97.2 F L 02/10/23 08:04 Pulse Rate 84 02/10/23 08:04 Respiratory Rate 20 04/14/23 08:04 Blood Pressure 144/88 H 02/10/23 08:04 Pulse Oximetry 99 02/10/23 08:04 Oxygen Delivery Method Room Air 02/10/23 08:04 Const General: cooperative, comfortable and No ill appearing HENMT Head: normal to inspection and normocephalic Resp Effort & Inspection: normal respiratory effort Auscultation: clear to auscultation bilaterally Cardio Rate: regular rate Rhythm: abnormal rhythm GI Inspection: normal to inspection Skin General: no rashes or lesions noted Neuro General: patient alert, patient awake, patient oriented x3 and moves all extremities Extrem General: normal to inspection and capillary refill normal Procedures Cardioversion Consent Signed: Yes Indication: Atrial fibrillation Stability: Stable Number of attempts (shocks): 1 Joules used: 120 Cardiac rhythm post-cardioversion: Sinus rhythm Procedural Sedation Consent signed: Yes Time out performed: Yes Indication: cardioversion Mallampati Airway Classification: Class II Preparation: playground monitor applied, pulse oximeter, capnometry used, suction/airway equipment at bedside and IV secured Fentanyl: IV Fentanyl dose (mcg): 25 IV Propofol dose (mg): 70 Intraservice time/total sedation time (min): 15 ED Sedation Level: Moderate (Concious) Patient Tolerated Procedure: Well Complications: none Course Orders Ordered: ED Orders 02/10/23 08:00 EKG-12 Lead Stat 02/10/23 08:10 Basic Metabolic Panel Stat Complete Blood Count AUTO DIFF Stat Magnesium Stat 02/10/23 08:48 EKG-12 Lead Stat Sodium Chloride (Normal Saline 0.9%) 1,000 mls @ 125 mls/hr IV CONT FABIAN Last Admin: 02/10/23 08:49 Dose: 125 mls/hr Documented By: DESI Discontinued Medications Fentanyl (Fentanyl 100 Mcg/2 Ml Inj) 25 mcg IV NOW ONE Stop: 02/10/23 08:11 Last Admin: 02/10/23 08:39 Dose: 25 mcg Documented By: DESI Propofol (Propofol 200 Mg/20 Ml Vial) 150 mg IV NOW ONE Stop: 02/10/23 08:11 Last Admin: 02/10/23 08:48 Dose: 70 mg Documented By: DESI Rivaroxaban (Rivaroxaban 10 Mg Tablet) 20 mg PO NOW ONE Stop: 02/10/23 08:50 Last Admin: 02/10/23 09:14 Dose: 20 mg Vital Signs Vital signs: Vital Signs - 8 hr 02/10/23 08:04 02/10/23 08:35 02/10/23 08:41 Temperature 97.2 F L 98 F Pulse Rate 84 78 66 Respiratory Rate 20 12 20 Blood Pressure 144/88 H 141/73 H 147/71 H Pulse Oximetry 99 100 96 Oxygen Delivery Method Room Air Oxygen Flow Rate 3 3 02/10/23 08:50 02/10/23 08:08 02/10/23 08:30 Temperature Pulse Rate 69 80 81 Respiratory Rate 13 13 13 Blood Pressure 116/65 Pulse Oximetry 98 98 99 Oxygen Delivery Method Room Air Oxygen Flow Rate 0 02/10/23 08:45 02/10/23 08:20 Temperature Pulse Rate 68 76 Respiratory Rate 11 L 20 Blood Pressure 118/66 Pulse Oximetry 97 Oxygen Delivery Method Oxygen Flow Rate 3 MDM - Arrhythmia/Palpitations Medical Records Attestation: I reviewed the patient's medical records. Lab Data Attestation: I reviewed the patient's lab results. 02/10/23 08:10 02/10/23 08:10 Labs: Lab Results 02/10/23 02/10/23 Range/Units 08:10 08:10 WBC 5.0 (4.5-11.0) X10^3/uL RBC 5.19 (4.5-5.9) X10^6/uL Hgb 15.3 (13.5-17.5) g/dL Hct 43.8 (41-53) % MCV 84.5 (80-100) fL MCH 29.5 (26-34) PG MCHC 34.9 (30-36) % RDW 13.4 (11.6-14.8) % Plt Count 234 (150-400) X10^3/uL Neut % (Auto) 53.4 (50-75) % Lymph % (Auto) 36.0 (25-40) % Patrick % (Auto) 7.7 (3-14) % Eos % (Auto) 2.4 (2-4) % Baso % (Auto) 0.5 (0-2) % Neut # (Auto) 2700 (7928-2427) /uL Lymph # (Auto) 1800 (0088-1616) /uL Patrick # (Auto) 400 (0-900) /uL Eos # (Auto) 100 (0-450) /uL Baso # (Auto) 0 (0-100) /uL Sodium 136 L (137-145) mmol/L Potassium 3.9 (3.4-5.1) mmol/L Chloride 104 (98-107) mmol/L Carbon Dioxide 23 (22-32) mmol/L BUN 12 (9-20) mg/dL Creatinine 0.74 (0.66-1.25) mg/dL Estimated GFR > 60 (>60) mL/min BUN/Creatinine Ratio 16.2 (6-22) Glucose 229 H (70-100) mg/dL Calcium 8.7 (8.4-10.2) mg/dL Magnesium 1.9 (1.6-2.3) mg/dL ECG Data Attestation: I personally reviewed and interpreted this ECG as follows: Interpretation: Atrial fibrillation Ventricular rate is 79 Normal axis Normal QRS Normal QTC No ST T wave changes Post cardioversion EKG Sinus rhythm Normal axis Normal QRS Normal QTC No ST T wave changes MDM Narrative Medical decision making narrative: Patient has a history of atrial fibrillation. Is on diltiazem. Not on anticoagulation. Symptoms started within the past 24 hours. Discussed the risks and benefits of rhythm control. He is already rate controlled. He is stable. After this discussion he opted to have the cardioversion. Consent was signed. He cardioverted with 1 attempt. Tolerated the procedure very well. We will put him on Xarelto. Will have him contact his hardening machine operator helper for follow-up. He was given return precautions. He expressed understanding and agreement. Discharge Plan Departure Patient Disposition: Home Clinical Impression: Atrial fibrillation status post cardioversion Instructions: DI for Cardioversion, DI for Atrial Fibrillation Activity Restrictions/Additional Instructions: Recommend that you continue to take all of your medications as directed to include the diltiazem. We do need to put you on Xarelto/rivaroxaban for the next couple weeks. Please take it as directed. You can Google ?Xarelto co-pay card ?if needed. This can help offset the cost of this medication. Contact your hardening machine operator helper for follow-up. Return to the emergency department for new symptoms. Prescriptions: New Xarelto 20 mg tablet 20 mg PO QPM Qty: 21 0RF Rx Instructions: must administer with evening meal No Action diltiazem HCl 120 mg Capsule,Extended Release 24hr 120 mg PO DAILY ferrous sulfate [FeroSul] 325 mg (65 mg iron) Tablet 325 mg PO Q OTHER DAY Referrals: Kym Valencia PA-C [Primary Care Provider] - Stand Alone Forms: Patient Portal/API
[2023-02-10 08:21] LABS: Add Manual Diff / Slide Review NO; Basophils Absolute Auto 0 /uL (0-100); Basophils Percent Auto 0.5 % (0-2); Eosinophils Absolute Auto 100 /uL (0-450); Eosinophils Percent Auto 2.4 % (2-4); Hematocrit 43.8 % (41-53); Hemoglobin 15.3 g/dL (13.5-17.5); Lymphocytes Absolute Auto 1800 /uL (1100-4500); Mean Corpuscular HGB Conc 34.9 % (30-36); Mean Corpuscular Hemoglobin 29.5 PG (26-34); Mean Corpuscular Volume 84.5 fL (80-100); Monocytes Absolute Auto 400 /uL (0-900); Monocytes Percent Auto 7.7 % (3-14); Neutrophils Absolute Auto 2700 /uL (1500-7000); Neutrophils Percent Auto 53.4 % (50-75); Platelet Count 234 X10^3/uL (150-400); Red Blood Cell Count 5.19 X10^6/uL (4.5-5.9); Red Cell Distribution Width 13.4 % (11.6-14.8)
[2023-02-10 08:32] LABS: BUN Creatinine Ratio 16.2 (6-22); Blood Urea Nitrogen 12 mg/dL (9-20); Calcium 8.7 mg/dL (8.4-10.2); Carbon Dioxide 23 mmol/L (22-32); Chloride 104 mmol/L (98-107); Estimated Glomerular Filt Rate > 60 mL/min (>60); Glucose 229 mg/dL (70-100); HEMOLYSIS 25 (0-50); Magnesium 1.9 mg/dL (1.6-2.3); Potassium 3.9 mmol/L (3.4-5.1); Sodium 136 mmol/L (137-145)
[2023-02-10] MEDS: fentaNYL 100 MCG/2 ML INJ 25 MCG IV (08:39)
[2023-02-10] MEDS: propofoL 200 MG/20 ML VIAL 150 MG IV (08:48)
[2023-02-10] MEDS: SODIUM CHLORIDE 0.9% 1,000 ML 125 ML IV (08:49)
--- NOTE | 2023-02-10 09:00 | RT ---
At bedside for cardioversion, bag mask unit with suction and etco2 on and functional. No distress noted and pt bea well. Rn and at bedside. Pt on 2 lpm nc, sao2 96%. Released by RN
[2023-02-10] MEDS: RIVAROXABAN 10 MG TABLET 20 MG PO (09:14)
== END 2023-02-10 09:33 | disposition home or self-care (01) ==
PROVIDERS: Emergency Provider Emergency Medicine; PCP Physician Assistant
DX: I48.91 Unspecified atrial fibrillation (principal); Z79.01 Long term (current) use of anticoagulants
CPT/HCPCS: 36415; 80048; 83735; 85025; 92960; 93005; 93010; 96361; 96374; 99152; 99285; J2704; J3010

== ENCOUNTER 2023-02-27 13:58 | Emergency (ER) | payer OTHER, SELFPAY ==
[2023-02-27] VITALS (20 sets, daily range): BP systolic 108–137; BP diastolic 57–88; PULSE 69–99; RESP 12–23; TEMP 36.5; O2SAT 94–100; BMI 31.6
--- NOTE | 2023-02-27 14:10 | ED.ARRPALP ---
HPI - Arrhythmia/Palpitations General Chief Complaint: Arrhythmia/Palpitations Stated Complaint: in AFIB Time Seen by Provider: 02/27/23 14:02 Source: patient and family Mode of arrival: Ambulatory History of Present Illness HPI narrative: Patient is a 57-year-old male. Does have a history of atrial fibrillation. Was seen here in the emergency department by myself approximately 2 weeks ago for a atrial fibrillation. He was cardioverted without issue. Was started on Xarelto. He states that today approximately 2 hours prior to arrival here in the emergency department he stated that he started to feel like his heart was beating fast. No shortness of breath. No lightheadedness. He thought that last night he would a couple beats where he felt like his heart was beating fast but that resolved on its own. He has been taking all of his medications as directed. Related Data Home Medications Medication Instructions Recorded Confirmed diltiazem HCl 120 mg 120 mg PO DAILY 04/06/21 04/06/21 capsule,extended release 24 hr ferrous sulfate 325 mg (65 mg 325 mg PO Q OTHER DAY 04/06/21 04/06/21 iron) tablet (FeroSul) Previous Rx's Medication Instructions Recorded rivaroxaban 20 mg tablet (Xarelto) 20 mg PO QPM #21 tabs 02/10/23 rivaroxaban 20 mg tablet (Xarelto) 20 mg PO QPM #21 tabs 02/11/23 diltiazem HCl 120 mg 120 mg PO BID #60 caps 02/27/23 capsule,extended release 12 hr Allergies Allergy/AdvReac Type Severity Reaction Status Date / Time No Known Drug Allergies Allergy Verified 04/06/21 14:34 Review of Systems Constitutional Constitutional: Reports system reviewed and no additional complaints, except as documented Cardiovascular Cardiovascular: Reports system reviewed and no additional complaints, except as documented Respiratory Respiratory: Reports system reviewed and no additional complaints, except as documented Integumentary/Breasts Skin/Breast: Reports system reviewed and no additional complaints, except as documented Hematologic/Lymphatic On Anticoagulants: Yes Patient History Medical History (Updated 02/27/23 @ 15:14 by Isidoro López DO) Atrial fibrillation Social History household members: spouse Smoking Status: Never smoker alcohol intake: former Smoking Status: Never smoker alcohol intake frequency: other Substance Use Type: does not use Exam Initial Vital Signs Initial Vital Signs: Vital Signs Pulse Rate 88 02/27/23 14:04 Pulse Oximetry 96 02/27/23 14:04 Oxygen Delivery Method Room Air 02/27/23 14:04 Const General: cooperative, comfortable and No ill appearing HENMT Head: normal to inspection and normocephalic Resp Effort & Inspection: normal respiratory effort Auscultation: clear to auscultation bilaterally Cardio Rate: regular rate Rhythm: abnormal rhythm GI Inspection: normal to inspection Skin General: no rashes or lesions noted Neuro General: patient alert, patient awake, patient oriented x3 and moves all extremities Speech: speech normal Extrem General: normal to inspection and capillary refill normal Procedures Cardioversion Consent Signed: Yes Indication: Atrial fibrillation Stability: Stable Number of attempts (shocks): 1 Joules used: 120 Cardiac rhythm post-cardioversion: Sinus rhythm Procedural Sedation Consent signed: Yes Indication: cardioversion ASA Class: II Mallampati Airway Classification: Class II Preparation: candy bar attendant applied, pulse oximeter, capnometry used, supplemental O2 applied, suction/airway equipment at bedside and IV secured Fentanyl: IV Fentanyl dose (mcg): 25 IV Propofol dose (mg): 70 Intraservice time/total sedation time (min): 15 ED Sedation Level: Moderate (Concious) Patient Tolerated Procedure: Well Complications: none Course Orders Ordered: ED Orders 02/27/23 14:08 Basic Metabolic Panel Stat Complete Blood Count AUTO DIFF Stat Magnesium Stat 02/27/23 14:11 EKG-12 Lead Stat 02/27/23 14:37 EKG-12 Lead Stat Sodium Chloride (Normal Saline 0.9%) 1,000 mls @ 125 mls/hr IV CONT FABIAN Last Infusion: 02/27/23 15:11 Dose: 0 mls/hr Documented By: Admin: 02/27/23 14:30 Dose: 1,000 mls/hr Documented By: AVIS Discontinued Medications Fentanyl (Fentanyl 100 Mcg/2 Ml Inj) 25 mcg IV NOW ONE Stop: 02/27/23 14:11 Last Admin: 02/27/23 14:30 Dose: 25 mcg Documented By: AVIS Propofol (Propofol 200 Mg/20 Ml Vial) 100 mg IV NOW ONE Stop: 02/27/23 14:11 Last Admin: 02/27/23 14:33 Dose: 70 mg Documented By: AVIS Vital Signs Vital signs: Vital Signs - 8 hr 02/27/23 14:05 02/27/23 15:00 02/27/23 14:04 Temperature 97.7 F Pulse Rate 99 H 88 Respiratory Rate 14 16 Blood Pressure 137/88 Pulse Oximetry 100 97 96 Oxygen Delivery Method Room Air Room Air Oxygen Flow Rate 0 02/27/23 14:05 02/27/23 14:05 02/27/23 14:28 Temperature Pulse Rate 95 H Respiratory Rate Blood Pressure 137/82 127/67 Pulse Oximetry 95 Oxygen Delivery Method Oxygen Flow Rate 02/27/23 14:28 02/27/23 14:30 02/27/23 14:32 Temperature Pulse Rate 81 85 86 Respiratory Rate 16 16 17 Blood Pressure Pulse Oximetry 96 96 95 Oxygen Delivery Method Nasal Cannula Nasal Cannula Oxygen Flow Rate 2 2 02/27/23 14:32 02/27/23 14:34 02/27/23 14:34 Temperature Pulse Rate 99 H Respiratory Rate 14 Blood Pressure 125/62 112/59 L Pulse Oximetry 96 Oxygen Delivery Method Oxygen Flow Rate 02/27/23 14:35 02/27/23 14:35 02/27/23 14:36 Temperature Pulse Rate 79 77 Respiratory Rate 15 14 Blood Pressure 111/59 L Pulse Oximetry 97 96 Oxygen Delivery Method Nasal Cannula Oxygen Flow Rate 2 02/27/23 14:36 02/27/23 14:41 02/27/23 14:41 Temperature Pulse Rate 75 Respiratory Rate 15 Blood Pressure 124/61 109/57 L Pulse Oximetry 97 Oxygen Delivery Method Nasal Cannula Oxygen Flow Rate 2 02/27/23 14:43 02/27/23 14:43 02/27/23 14:44 Temperature Pulse Rate 74 73 Respiratory Rate 12 13 Blood Pressure 111/58 L Pulse Oximetry 97 96 Oxygen Delivery Method Nasal Cannula Oxygen Flow Rate 2 02/27/23 14:44 02/27/23 14:48 02/27/23 14:48 Temperature Pulse Rate 72 Respiratory Rate 13 Blood Pressure 113/61 108/61 Pulse Oximetry 96 Oxygen Delivery Method Nasal Cannula Oxygen Flow Rate 2 02/27/23 14:52 02/27/23 14:52 02/27/23 14:56 Temperature Pulse Rate 69 71 Respiratory Rate 14 16 Blood Pressure 110/59 L Pulse Oximetry 97 94 Oxygen Delivery Method Room Air Room Air Oxygen Flow Rate 02/27/23 14:56 02/27/23 15:00 02/27/23 15:00 Temperature Pulse Rate 72 Respiratory Rate 17 Blood Pressure 109/60 117/63 Pulse Oximetry 95 Oxygen Delivery Method Oxygen Flow Rate 02/27/23 15:04 02/27/23 15:04 02/27/23 15:10 Temperature Pulse Rate 75 71 Respiratory Rate 20 18 Blood Pressure 122/66 Pulse Oximetry 96 96 Oxygen Delivery Method Room Air Oxygen Flow Rate 02/27/23 15:08 02/27/23 15:08 Temperature Pulse Rate 74 Respiratory Rate 16 Blood Pressure 125/72 Pulse Oximetry 96 Oxygen Delivery Method Room Air Oxygen Flow Rate MDM - Arrhythmia/Palpitations Medical Records Attestation: I reviewed the patient's medical records. Lab Data Attestation: I reviewed the patient's lab results. 02/27/23 14:08 02/27/23 14:08 Labs: Lab Results 02/27/23 02/27/23 Range/Units 14:08 14:08 WBC 5.5 (4.5-11.0) X10^3/uL RBC 5.00 (4.5-5.9) X10^6/uL Hgb 14.8 (13.5-17.5) g/dL Hct 42.0 (41-53) % MCV 84.1 (80-100) fL MCH 29.5 (26-34) PG MCHC 35.1 (30-36) % RDW 13.1 (11.6-14.8) % Plt Count 233 (150-400) X10^3/uL Neut % (Auto) 53.1 (50-75) % Lymph % (Auto) 36.0 (25-40) % [place] % (Auto) 7.4 (3-14) % Eos % (Auto) 2.7 (2-4) % Baso % (Auto) 0.8 (0-2) % Neut # (Auto) 2900 (8644-1352) /uL Lymph # (Auto) 2000 (5331-9640) /uL [place] # (Auto) 400 (0-900) /uL Eos # (Auto) 200 (0-450) /uL Baso # (Auto) 0 (0-100) /uL Sodium 138 (137-145) mmol/L Potassium 3.7 (3.4-5.1) mmol/L Chloride 106 (98-107) mmol/L Carbon Dioxide 24 (22-32) mmol/L BUN 11 (9-20) mg/dL Creatinine 0.78 (0.66-1.25) mg/dL Estimated GFR > 60 (>60) mL/min BUN/Creatinine Ratio 14.1 (6-22) Glucose 151 H (70-100) mg/dL Calcium 8.8 (8.4-10.2) mg/dL Magnesium 2.0 (1.6-2.3) mg/dL ECG Data Attestation: I personally reviewed and interpreted this ECG as follows: Interpretation: Atrial fibrillation Ventricular rate 87 Normal QRS Normal QTC No ST T wave changes Post cardioversion Sinus rhythm Ventricular rate is 78 Normal axis Normal QRS Normal QTC No ST T wave changes Discharge Plan Departure Patient Disposition: Home Clinical Impression: Atrial fibrillation Instructions: DI for Atrial Fibrillation Activity Restrictions/Additional Instructions: I do recommend that you continue to take all of your medications as directed except that cardiology recommends that you increase your diltiazem from 120 mg once a day to 120 mg twice a day. A new prescription for this was sent to [facility]. I recommend you keep all of your scheduled medical appointments. Return to the emergency department for new or worsening symptoms. Prescriptions: New diltiazem HCl 120 mg capsule,extended release 12 hr 120 mg PO BID Qty: 60 0RF No Action diltiazem HCl 120 mg Capsule,Extended Release 24hr 120 mg PO DAILY ferrous sulfate [FeroSul] 325 mg (65 mg iron) Tablet 325 mg PO Q OTHER DAY Xarelto 20 mg tablet 20 mg PO QPM Qty: 21 0RF Rx Instructions: must administer with evening meal Xarelto 20 mg tablet 20 mg PO QPM Qty: 21 0RF Rx Instructions: must administer with evening meal Referrals: Kym Valencia PA-C [Primary Care Provider] - Stand Alone Forms: Patient Portal/API
[2023-02-27 14:21] LABS: Add Manual Diff / Slide Review NO; Basophils Absolute Auto 0 /uL (0-100); Basophils Percent Auto 0.8 % (0-2); Eosinophils Absolute Auto 200 /uL (0-450); Eosinophils Percent Auto 2.7 % (2-4); Hemoglobin 14.8 g/dL (13.5-17.5); Lymphocytes Absolute Auto 2000 /uL (1100-4500); Mean Corpuscular HGB Conc 35.1 % (30-36); Mean Corpuscular Hemoglobin 29.5 PG (26-34); Mean Corpuscular Volume 84.1 fL (80-100); Monocytes Absolute Auto 400 /uL (0-900); Monocytes Percent Auto 7.4 % (3-14); Neutrophils Absolute Auto 2900 /uL (1500-7000); Neutrophils Percent Auto 53.1 % (50-75); Platelet Count 233 X10^3/uL (150-400); Red Cell Distribution Width 13.1 % (11.6-14.8); White Blood Cell Count 5.5 X10^3/uL (4.5-11.0)
[2023-02-27] MEDS: fentaNYL 100 MCG/2 ML INJ 25 MCG IV (14:30)
[2023-02-27] MEDS: SODIUM CHLORIDE 0.9% 1,000 ML 1000 ML IV (14:30)
[2023-02-27 14:32] LABS: BUN Creatinine Ratio 14.1 (6-22); Blood Urea Nitrogen 11 mg/dL (9-20); Calcium 8.8 mg/dL (8.4-10.2); Carbon Dioxide 24 mmol/L (22-32); Chloride 106 mmol/L (98-107); Estimated Glomerular Filt Rate > 60 mL/min (>60); Glucose 151 mg/dL (70-100); HEMOLYSIS < 15 (0-50); Potassium 3.7 mmol/L (3.4-5.1); Sodium 138 mmol/L (137-145)
[2023-02-27] MEDS: propofoL 200 MG/20 ML VIAL 100 MG IV (14:33)
== END 2023-02-27 15:25 | disposition home or self-care (01) ==
PROVIDERS: Emergency Provider Emergency Medicine; PCP Physician Assistant
DX: I48.91 Unspecified atrial fibrillation (principal); Z79.01 Long term (current) use of anticoagulants
CPT/HCPCS: 36415; 80048; 83735; 85025; 92960; 93005; 96360; 99152; 99285; 99291; J2704; J3010

== ENCOUNTER 2023-04-02 15:59 | Emergency (ER) | payer OTHER, SELFPAY ==
[2023-04-02] VITALS (10 sets, daily range): BP systolic 95–121; BP diastolic 53–63; PULSE 68–86; RESP 16–21; TEMP 36.7; O2SAT 96–99; BMI 33.9
--- NOTE | 2023-04-02 16:06 | DI.RAD.S_ITS ---
PROCEDURE: XR CHEST 1V INDICATIONS: chest pain TECHNIQUE: One view of the chest was acquired. COMPARISON: [facility], CR, XR CHEST 1V, 12/25/2022, 18:22. FINDINGS: Surgical changes and devices: None. Lungs and pleura: Lungs are clear. No pleural effusions or pneumothorax. Mediastinum: Mediastinal contours appear normal. Heart size is normal. Bones and chest wall: No suspicious bony lesions. Overlying soft tissues appear unremarkable. IMPRESSION: No evidence of an acute cardiopulmonary abnormality. Dictated by: Wally Noel D.O. on 04/02/2023 at 15:37 Approved by: Wally Noel D.O. on 04/02/2023 at 15:38
[2023-04-02 16:15] LABS: Add Manual Diff / Slide Review NO; Basophils Absolute Auto 100 /uL (0-100); Basophils Percent Auto 0.8 % (0-2); Eosinophils Absolute Auto 600 /uL (0-450); Hematocrit 41.5 % (41-53); Hemoglobin 14.2 g/dL (13.5-17.5); Lymphocytes Absolute Auto 2100 /uL (1100-4500); Lymphocytes Percent Auto 33.4 % (25-40); Mean Corpuscular HGB Conc 34.3 % (30-36); Mean Corpuscular Hemoglobin 29.5 PG (26-34); Mean Corpuscular Volume 86.1 fL (80-100); Monocytes Absolute Auto 600 /uL (0-900); Monocytes Percent Auto 10.2 % (3-14); Neutrophils Absolute Auto 3000 /uL (1500-7000); Neutrophils Percent Auto 46.6 % (50-75); Platelet Count 233 X10^3/uL (150-400); Red Blood Cell Count 4.81 X10^6/uL (4.5-5.9); Red Cell Distribution Width 13.5 % (11.6-14.8); White Blood Cell Count 6.4 X10^3/uL (4.5-11.0)
[2023-04-02 16:21] LABS: INR 1.1 (0.9-1.3); Prothrombin Time 12.5 SECONDS (10.1-12.7)
[2023-04-02 16:23] LABS: PTT Partial Thromboplastin Tim 34 SECONDS (26-36)
[2023-04-02 16:25] LABS: Alanine Aminotransferase 40 IU/L (<50); Albumin 4.2 g/dL (3.5-5.0); Albumin Globulin Ratio 1.3 (1.0-2.8); Alkaline Phosphatase 52 U/L (38-126); Aspartate Aminotransferase 43 IU/L (17-59); BUN Creatinine Ratio 17.2 (6-22); Bilirubin Total 0.6 mg/dL (0.2-1.3); Blood Urea Nitrogen 15 mg/dL (9-20); Calcium 8.8 mg/dL (8.4-10.2); Carbon Dioxide 25 mmol/L (22-32); Chloride 107 mmol/L (98-107); Creatine Kinase 453 U/L (55-170); Estimated Glomerular Filt Rate > 60 mL/min (>60); Globulin 3.2 g/dL (1.7-4.1); Glucose 126 mg/dL (70-100); HEMOLYSIS < 15 (0-50); Lipase 261 U/L (23-300); Magnesium 2.1 mg/dL (1.6-2.3); Potassium 3.7 mmol/L (3.4-5.1); Sodium 139 mmol/L (137-145); Total Protein 7.4 g/dL (6.3-8.2)
--- NOTE | 2023-04-02 16:32 | PC.NURSE ---
Patient reports he missed a dose of his diltiazem due to his job. When symptoms started, took a second dose of medication and reports he now feels better than when it started. Patient was sitting on his porch eating when symptoms began.
[2023-04-02 16:37] LABS: Troponin I < 0.012 ng/mL (0.01-0.034)
--- NOTE | 2023-04-02 18:34 | ED_ITS ---
HPI - Arrhythmia/Palpitations General Chief Complaint: Arrhythmia/Palpitations Stated Complaint: States he is in A-fib Time Seen by Provider: 04/02/23 17:15 Source: patient Mode of arrival: Family Vehicle History of Present Illness HPI narrative: 57-year-old male nonsmoker with history of atrial fibrillation, has been cardioverted twice in the past 2 months and had been taking Xarelto most of the time presents with a chief complaint of a recurrence of atrial fibrillation that started this afternoon after eating a lunch of [place] food. He denies chest pain or shortness of breath but just states he felt some palpitations. He states that he missed at least a dose of his diltiazem yesterday and as a result took 2 of them this afternoon. He states when in a sinus rhythm his heart rate is usually in the 60s or 70s. He is followed by Dr. Gonzalez at [facility] Cardiology Related Data Home Medications Medication Instructions Recorded Confirmed diltiazem HCl 120 mg 120 mg PO DAILY 04/06/21 04/06/21 capsule,extended release 24 hr ferrous sulfate 325 mg (65 mg 325 mg PO Q OTHER DAY 04/06/21 04/06/21 iron) tablet (FeroSul) Previous Rx's Medication Instructions Recorded rivaroxaban 20 mg tablet (Xarelto) 20 mg PO QPM #21 tabs 02/10/23 rivaroxaban 20 mg tablet (Xarelto) 20 mg PO QPM #21 tabs 02/11/23 diltiazem HCl 120 mg 120 mg PO BID #60 caps 02/27/23 capsule,extended release 12 hr diltiazem HCl 120 mg 120 mg PO BID #60 caps 04/02/23 capsule,extended release 12 hr Allergies Allergy/AdvReac Type Severity Reaction Status Date / Time No Known Drug Allergies Allergy Verified 04/02/23 16:03 Review of Systems Review of Systems Narrative: GENERAL: Denies chills, fatigue, malaise, fever, sweats. HEENT: Denies sinus pain, ear pain, sore throat, difficulty swallowing, dizzine ss. RESPIRATORY: Denies dyspnea, cough, wheezing, hemoptysis, sputum. CARDIOVASCULAR: See HPI GASTROINTESTINAL: Denies nausea, vomiting, abdominal pain, diarrhea, constipation, melena. : Denies dysuria, frequency, incontinence, hematuria, urinary retention. MUSCULOSKELETAL: denies weakness, joint pain, or bony pain SKIN: Denies rash, skin lesions, or other NEUROLOGIC: Denies weakness, headache, numbness, change in speech, confusion, seizures, incoordination. PSYCHIATRIC: No concerning psychosocial issues. 12 point review of systems is negative except for those stated above Patient History Medical History Atrial fibrillation Social History household members: spouse Smoking Status: Never smoker alcohol intake: former Smoking Status: Never smoker alcohol intake frequency: other Substance Use Type: does not use Exam Narrative Exam Narrative: GENERAL: [57] year old patient appears stated age. Well-developed patient, in mild distress. HEAD: Atraumatic. Normocephalic. EYES: Pupils equal round and reactive. Extraocular motions intact. No scleral icterus. No injection or drainage. ENT: Nose without bleeding, purulent drainage. Throat without erythema, tonsillar hypertrophy or exudate. Airway patent. NECK: Trachea midline. Non tender CARDIOVASCULAR: Irregular rhythm with rate control without murmurs, gallops, or rubs. RESPIRATORY: Clear to auscultation. Breath sounds equal bilaterally. No wheezes, rales, or rhonchi. GASTROINTESTINAL: Abdomen soft, non-tender, nondistended. EXTREMITIES: No edema or joint tenderness. BACK: Nontender without deformity or crepitance. No flank tenderness. NEURO: AOx3. SKIN: No rash or erythema of visible areas Initial Vital Signs Initial Vital Signs: Vital Signs Temperature 98.1 F 04/02/23 16:06 Pulse Rate 86 04/02/23 16:06 Respiratory Rate 18 04/02/23 16:06 Blood Pressure 114/61 04/02/23 16:06 Pulse Oximetry 99 04/02/23 16:06 Oxygen Delivery Method Room Air 04/02/23 16:06 Course Orders Ordered: Discontinued Medications Aspirin (Aspirin 81 Mg Chew Tab) 324 mg PO NOW ONE Stop: 04/02/23 16:07 Last Admin: 04/02/23 16:37 Dose: Not Given Documented By: KIMMIE Diltiazem HCl (Diltiazem 5 Mg/Ml Sdv) 10 mg IV NOW ONE Stop: 04/02/23 16:34 Last Admin: 04/02/23 17:55 Dose: Not Given Documented By: CTS Consultations Consultation #1: Discussed with on-call Cardiology, Dr. Gonzalez. We have discussed the patient's history and physical exam as well as recent history. Given patient's rate control and lack of symptoms as well as unclear use of Xarelto we sure the opinion that there is no indication for cardioversion at this time. Furthermore given the patient's self report that he has been medically noncompliant even with rate control we sure the opinion that stressing the importance of adhering to medication instructions and close follow-up are most appropriate at this time Vital Signs Vital signs: Vital Signs - 8 hr 04/02/23 16:06 04/02/23 16:31 04/02/23 16:29 Temperature 98.1 F Pulse Rate 86 75 Respiratory Rate 18 18 Blood Pressure 114/61 121/59 L 121/59 L Pulse Oximetry 99 97 Oxygen Delivery Method Room Air Room Air 04/02/23 16:40 04/02/23 16:42 04/02/23 16:42 Temperature Pulse Rate 68 80 Respiratory Rate 21 Blood Pressure 110/55 L Pulse Oximetry Oxygen Delivery Method 04/02/23 17:00 04/02/23 17:00 04/02/23 17:30 Temperature Pulse Rate 68 Respiratory Rate 17 Blood Pressure 106/57 L 102/58 L Pulse Oximetry Oxygen Delivery Method 04/02/23 17:30 Temperature Pulse Rate 69 Respiratory Rate 18 Blood Pressure Pulse Oximetry 96 Oxygen Delivery Method MDM - Arrhythmia/Palpitations Lab Data 04/02/23 16:04 04/02/23 16:04 Labs: Lab Results 04/02/23 04/02/23 04/02/23 Range/Units 16:04 16:04 16:04 WBC 6.4 (4.5-11.0) X10^3/uL RBC 4.81 (4.5-5.9) X10^6/uL Hgb 14.2 (13.5-17.5) g/dL Hct 41.5 (41-53) % MCV 86.1 (80-100) fL MCH 29.5 (26-34) PG MCHC 34.3 (30-36) % RDW 13.5 (11.6-14.8) % Plt Count 233 (150-400) X10^3/uL Neut % (Auto) 46.6 L (50-75) % Lymph % (Auto) 33.4 (25-40) % [place] % (Auto) 10.2 (3-14) % Eos % (Auto) 9.0 H (2-4) % Baso % (Auto) 0.8 (0-2) % Neut # (Auto) 3000 (8908-4471) /uL Lymph # (Auto) 2100 (8208-2515) /uL [place] # (Auto) 600 (0-900) /uL Eos # (Auto) 600 H (0-450) /uL Baso # (Auto) 100 (0-100) /uL PT 12.5 (10.1-12.7) SECONDS INR 1.1 (0.9-1.3) APTT 34 (26-36) SECONDS Sodium 139 (137-145) mmol/L Potassium 3.7 (3.4-5.1) mmol/L Chloride 107 (98-107) mmol/L Carbon Dioxide 25 (22-32) mmol/L BUN 15 (9-20) mg/dL Creatinine 0.87 (0.66-1.25) mg/dL Estimated GFR > 60 (>60) mL/min BUN/Creatinine Ratio 17.2 (6-22) Glucose 126 H (70-100) mg/dL Calcium 8.8 (8.4-10.2) mg/dL Magnesium 2.1 (1.6-2.3) mg/dL Total Bilirubin 0.6 (0.2-1.3) mg/dL AST 43 (17-59) IU/L ALT 40 (<50) IU/L Alkaline Phosphatase 52 (38-126) U/L Total Creatine Kinase 453 H (55-170) U/L CK-MB (CK-2) TNP CK-MB (CK-2) Rel Index TNP Troponin I < 0.012 (0.01-0.034) ng/mL Total Protein 7.4 (6.3-8.2) g/dL Albumin 4.2 (3.5-5.0) g/dL Globulin 3.2 (1.7-4.1) g/dL Albumin/Globulin Ratio 1.3 (1.0-2.8) Lipase 261 (23-300) U/L [facility] Narrative Medical decision making narrative: [57] year old patient presents with atrial fibrillation Multiple etiologies for patient's symptoms considered including, but not limited to: [AFib, medical noncompliance versus other] Prior Charts reviewed in our EMR Primary Historian: patient Labs reviewed and interpreted by myself: No significant abnormalities requiring specific intervention Imaging reviewed: Chest x-ray without evidence of acute process Consultations: Discussed with on-call Cardiology, see details above Patient's symptoms improved over duration of stay with above-stated therapies. Findings and discharge diagnosis discussed with patient/family followed by verb alization of understanding Return precautions discussed with patient/family whom verbalize understanding of diagnosis and plan Discharge Plan Departure Patient Disposition: Home Clinical Impression: Atrial fibrillation Instructions: DI for Atrial Fibrillation Activity Restrictions/Additional Instructions: *You have been diagnosed with [ atrial fibrillation] *What to do: *Please continue to take your regular medications as directed. [ x] New medication prescriptions sent to your pharmacy: [[facility] ] [ ] New medication written as a paper prescription [ ] No new medications given *Please follow up with your primary electronics technician apprentice in 2-3 days, call for an appointment. Let them know you were seen in the Emergency Department and that we ask that you be seen in follow up. We will electronically transmit a record of today's note if your PCP is in our system *Return to Emergency Department if you should have any new, worsening or concerning symptoms, such as [fever greater than 101 F, shaking chills, worsening pain, persistent vomiting or other bothersome symptoms] Prescriptions: New diltiazem HCl 120 mg capsule,extended release 12 hr 120 mg PO BID Qty: 60 0RF No Action diltiazem HCl 120 mg capsule,extended release 12 hr 120 mg PO BID Qty: 60 0RF diltiazem HCl 120 mg Capsule,Extended Release 24hr 120 mg PO DAILY ferrous sulfate [FeroSul] 325 mg (65 mg iron) Tablet 325 mg PO Q OTHER DAY Xarelto 20 mg tablet 20 mg PO QPM Qty: 21 0RF Rx Instructions: must administer with evening meal Xarelto 20 mg tablet 20 mg PO QPM Qty: 21 0RF Rx Instructions: must administer with evening meal Referrals: Kevin Gonzalez MD [Physician] - Kym Valencia PA-C [Primary Care Provider] - Stand Alone Forms: Patient Portal/API
== END 2023-04-02 19:02 | disposition home or self-care (01) ==
PROVIDERS: Emergency Medicine; Emergency Provider Emergency Medicine; PCP Physician Assistant
DX: I48.91 Unspecified atrial fibrillation (principal); R07.9 Chest pain, unspecified; Z79.01 Long term (current) use of anticoagulants; Z79.899 Other long term (current) drug therapy
CPT/HCPCS: 36415; 71045; 80053; 82550; 83690; 83735; 84484; 85025; 85610; 85730; 93005; 93010; 99284

== ENCOUNTER → 2024-03-04 14:06 | Outpatient (CLI) | payer OTHER, SELFPAY ==
--- NOTE | 2024-03-04 14:09 | DI.RAD.S_ITS ---
PROCEDURE: XR HAND RT MIN 3V INDICATIONS: HAND PAIN TECHNIQUE: 3 views of the hand(s) acquired. COMPARISON: [facility], , HAND 3V RIGHT, 06/21/2009, 16:37. FINDINGS: Bones: No fractures or dislocations. Carpal bones are normally aligned. No suspicious bony lesions. Soft tissues: No suspicious soft tissue calcifications. IMPRESSION: No acute bony abnormality. No significant degenerative change. Dictated by: Rui Diaz M.D. on 03/04/2024 at 15:44 Approved by: Rui Diaz M.D. on 03/04/2024 at 15:45
== END ==
LOC: RAD 14:08
PROVIDERS: PCP Physician Assistant; Referring Provider Nurse Practitioner Family; Visit Provider Nurse Practitioner Family
DX: M79.641 Pain in right hand (principal)
CPT/HCPCS: 73130